=== PATIENT | female | born 1975 | race Caucasian/White ===

== ENCOUNTER 2018-08-22 13:05 | Emergency (ER) | payer OTHER ==
[~2018-08-22] VITALS: Ht 149.9 cm; Wt 74.8 kg
== END 2018-08-22 15:11 | disposition home or self-care (01) ==
LOC: ER 13:05
DX: R07.89 Other chest pain (principal); M94.0 Chondrocostal junction syndrome [Tietze]

== ENCOUNTER 2019-12-02 10:31 | Inpatient (IN) | payer OTHER ==
[~2019-12-02] VITALS: Ht 162.6 cm; Wt 90.7 kg
== END 2019-12-03 12:20 | disposition home or self-care (01) | DRG 343 ==
LOC: ER 10:31 → SURG 14:33
PROVIDERS: ADMIT Colon & Rectal Surgery
PROC: BW21ZZZ Computerized Tomography (CT Scan) of Abdomen and Pelvis (ICD-10-PCS; 2019-12-02)
PROC: 0DTJ4ZZ Resection of Appendix, Percutaneous Endoscopic Approach (ICD-10-PCS; principal; 2019-12-02 17:00)
DX: K35.30 Acute appendicitis with localized peritonitis, without perforation or gangrene (principal); R10.31 Right lower quadrant pain

== ENCOUNTER 2022-09-20 10:02 | Emergency (ER) | payer OTHER ==
[~2022-09-20] VITALS: Ht 162.6 cm; Wt 99.8 kg
[2022-09-20] MEDS ORDERED: HYZAAR 100-251 EACH (10:32)
[2022-09-20] MEDS ORDERED: KETO10TA2 PO (15:54)
[2022-09-20] MEDS ORDERED: CLEOCIN HCL300 MG PO (15:54)
[2022-09-20] MEDS ORDERED: AMOX-CLAV 875-1 EACH PO (15:54)
== END 2022-09-20 16:02 | disposition home or self-care (01) ==
LOC: ER 10:02
DX: J03.90 Acute tonsillitis, unspecified (principal); I10 Essential (primary) hypertension; Z20.822 Contact with and (suspected) exposure to COVID-19

== ENCOUNTER 2023-04-14 11:50 | Emergency (ER) | payer OTHER ==
[~2023-04-14] VITALS: Ht 162.6 cm; Wt 98.9 kg
[~2023-04-14 11:50] MED LIST: AMOX-CLAV 875-1 EACH PO; CLEOCIN HCL300 MG PO; HYZAAR 100-251 EACH; KETO10TA2 PO
[2023-04-14] MEDS ORDERED: LOSARTAN-HCTZ1 EACH PO (12:33)
== END 2023-04-14 13:23 | disposition home or self-care (01) ==
LOC: ER 11:50
DX: L02.223 Furuncle of chest wall (principal)

== ENCOUNTER 2024-02-06 06:40 | Emergency (ER) | payer OTHER ==
[~2024-02-06] VITALS: Ht 162.6 cm; Wt 77.1 kg
[~2024-02-06 06:40] MED LIST changes: +LOSARTAN-HCTZ1 EACH PO
[2024-02-06] MEDS ORDERED: CEPHALEXIN750 MG (06:55)
[2024-02-06] MEDS ORDERED: CEFTRIAXONE SODIUM 1,000 MG VIAL IM ONE (08:30)
[2024-02-06 08:44] LABS: HEMATOCRIT 37.3 % (36.0-45.00); HEMOGLOBIN 12.6 g/dL (12.0-15.00); MEAN CELL VOLUME 83.7 fL (80.00-100.00); MEAN CORPUSCULAR HEMOGLOBIN 28.4 pg (27.00-32.0); MEAN CORPUSCULAR HGB CONC 33.9 g/dl (32.0-36.0); PLATELET COUNT 434 K/uL (150-450); RED BLOOD COUNT 4.46 M/uL (4.00-6.00)
[2024-02-06] MEDS ORDERED: LEVOFLOXACIN500 MG PO (09:39)
[2024-02-06] MEDS ORDERED: DICLOFENAC SODI75 MG PO (09:39)
== END 2024-02-06 09:52 | disposition home or self-care (01) ==
LOC: ER 06:41
PROVIDERS: General Practice
DX: L02.213 Cutaneous abscess of chest wall (principal)